=== PATIENT | female | born 1955 | race Caucasian/White ===

== ENCOUNTER 2018-11-13 05:54 | Inpatient (IN) | payer MEDICARE, OTHER ==
[2018-11-13] MEDS ORDERED: ROCURONIUM 50 MG INJ (06:53)
[2018-11-13] MEDS ORDERED: MIDAZOLAM 1 MG/ML 2 ML INJ (06:53)
[2018-11-13] MEDS ORDERED: CEFAZOLIN 1 GM INJ (06:53)
[2018-11-13] MEDS ORDERED: FENTAnyl 50 MCG/ML VIAL ×3 (06:53→09:49)
[2018-11-13] MEDS ORDERED: PROPOFOL 20 ML (06:53)
[2018-11-13] MEDS: CEFAZOLIN 2 GM/50 ML (PMX) 50 ML IVPB (06:55)
[2018-11-13] MEDS ORDERED: DIPHENHYDRAMINE 50 MG INJ IV (07:00)
[2018-11-13] MEDS ORDERED: LABETALOL HCL 20MG INJ IV (07:00)
[2018-11-13] MEDS ORDERED: METOCLOPRAMIDE 10 MG INJ IV (07:00)
[2018-11-13] MEDS ORDERED: FENTAnyl 50 MCG/ML VIAL IV ×3 (07:00)
[2018-11-13] MEDS ORDERED: PHENYLephrine (100 MCG/ML) 10ML SYG (07:00)
[2018-11-13] MEDS ORDERED: HYDROmorphONE 1 MG/5 ML IV SYRINGE IV (07:00)
[2018-11-13] MEDS ORDERED: EPHEDrine 25 MG/5 ML SYG IV (07:00)
[2018-11-13] MEDS ORDERED: hydrALAzine 20 MG INJ IV (07:00)
[2018-11-13] MEDS ORDERED: MEPERIDINE 25 MG INJ IV (07:00)
[2018-11-13] MEDS: LACTATED RINGER'S 1,000 ML IV ×2 (07:39)
[2018-11-13] MEDS ORDERED: LABETALOL HCL 20MG INJ (07:39)
[2018-11-13] MEDS ORDERED: ONDANSETRON 4 MG INJ (07:49)
[2018-11-13] MEDS ORDERED: DEXAMETHASONE 4 MG/ML 5 ML INJ (07:49)
[2018-11-13] MEDS ORDERED: METOCLOPRAMIDE 10 MG INJ (07:49)
[2018-11-13] MEDS: BUPIVACAINE 0.25% (MPF) 30 ML INJ (08:16)
[2018-11-13] MEDS: POLYMYXIN/BACITRACIN 1L IRRIG (08:20)
[2018-11-13] MEDS ORDERED: SUGAMMADEX SODIUM 200 MG/2 ML VIAL IV (09:00)
[2018-11-13] MEDS: THROMBIN 5000 UNIT VIAL (09:00)
[2018-11-13] MEDS: GELATIN SIZE 100 SPONGE (09:01)
[2018-11-13] MEDS: HYDROmorphONE 1 MG/5 ML IV SYRINGE IV ×2 (10:27→10:39)
[2018-11-13] MEDS: ONDANSETRON 4 MG INJ IV ×2 (10:27→20:45)
[2018-11-13] MEDS ORDERED: ZOLPIDEM 5 MG TAB PO (10:30)
[2018-11-13] MEDS ORDERED: TRIMETHOBENZAMIDE 100 MG/ML VIAL IM (10:30)
[2018-11-13] MEDS ORDERED: AL HYDROX/MG HYDROX/SIMETH 30 ML CUP PO (10:30)
[2018-11-13] MEDS ORDERED: DIAZEPAM 5 MG/ML SYG IM (10:30)
[2018-11-13] MEDS ORDERED: PROCHLORPERAZINE 10 MG TAB PO (10:30)
[2018-11-13] MEDS ORDERED: NACL 0.9% 3 ML SYG IV (10:30)
[2018-11-13] MEDS ORDERED: BETHANECHOL 25 MG TAB PO (10:30)
[2018-11-13] MEDS ORDERED: NALOXONE (0.4 MG/ML) INJ IV (10:30)
[2018-11-13] MEDS: HYDROmorphONE 0.2 MG/ML PCA IV ×2 (10:32→18:32)
[2018-11-13] MEDS: DEXTROSE 5%-0.45% NACL 1,000 ML IV ×3 (11:02→22:57)
[2018-11-13] MEDS: CEFAZOLIN 1 GM/50 ML (PMX) 50 ML IVPB ×3 (11:09→22:51)
[2018-11-13] MEDS: DIAZEPAM 5 MG TAB PO ×3 (12:13→22:04)
[2018-11-13] MEDS ORDERED: SUMATRIPTAN 50 MG TAB PO (20:00)
[2018-11-13] MEDS ORDERED: URSODIOL 250 MG TAB PO (21:00)
[2018-11-13] MEDS ORDERED: DESIPRAMINE 25 MG TAB PO (21:00)
[2018-11-13] MEDS: RANITIDINE 150 MG TAB PO (22:03)
[2018-11-13] MEDS: CEPASTAT LOZENGE MT (22:03)
[2018-11-13] MEDS: URSODIOL 250 MG TAB PO (22:04)
[2018-11-13] MEDS: SUMATRIPTAN 50 MG TAB PO (22:04)
[2018-11-13] MEDS: TRIMETHOPRIM/SULFAMETHOX (DS) TAB PO (22:04)
[2018-11-14] MEDS: METOCLOPRAMIDE 10 MG INJ IV (00:07)
[2018-11-14] MEDS: LORAZEPAM 1 MG TAB PO (04:25)
[2018-11-14] MEDS: DIPHENHYDRAMINE 50 MG CAP PO (04:25)
[2018-11-14] MEDS: HYDROmorphONE 0.2 MG/ML PCA IV (04:31)
[2018-11-14 05:13] LABS: HEMATOCRIT 33.8 % (37.0-47.0); HEMOGLOBIN 10.8 g/dl (12.0-16.0)
[2018-11-14 05:34] LABS: ANION GAP 3 (5-13); BLOOD UREA NITROGEN 5 mg/dl (7-20); CALCIUM 8.3 mg/dl (8.4-10.2); CARBON DIOXIDE 27 mmol/L (21-31); CHLORIDE 108 mmol/L (97-110); Estimated GFR > 60 mL/min (>60); GLUCOSE 128 mg/dl (70-220); POTASSIUM 3.3 mmol/L (3.5-5.1); SODIUM 138 mmol/L (135-144)
[2018-11-14] MEDS: CEFAZOLIN 1 GM/50 ML (PMX) 50 ML IVPB (05:48)
[2018-11-14] MEDS ORDERED: METOCLOPRAMIDE 10 MG INJ IV (06:00)
[2018-11-14] MEDS: RANITIDINE 150 MG TAB PO ×2 (09:49→20:22)
[2018-11-14] MEDS: DOCUSATE SODIUM 100 MG CAP PO ×2 (09:51→20:22)
[2018-11-14] MEDS: BETHANECHOL 25 MG TAB PO (09:52)
[2018-11-14] MEDS: BUPROPION (XL) 150 MG TAB PO (09:53)
[2018-11-14] MEDS: ARIPIPRAZOLE 5 MG TAB PO (09:53)
[2018-11-14] MEDS: ASCORBIC ACID 500 MG TAB PO ×2 (09:53→20:22)
[2018-11-14] MEDS: FERROUS SULFATE (EC) 325 MG TAB PO ×3 (09:53→20:23)
[2018-11-14] MEDS: TRIMETHOPRIM/SULFAMETHOX (DS) TAB PO ×2 (09:54→20:22)
[2018-11-14] MEDS: HYDROmorphONE 2 MG TAB PO ×2 (11:29→15:06)
[2018-11-14 12:33] LABS: ADD UMIC NO; UR ASCORBIC ACID NEGATIVE (NEGATIVE); UR BILIRUBIN (Dip) NEGATIVE (NEGATIVE); UR BLOOD (Dip) NEGATIVE (NEGATIVE); UR CLARITY CLEAR (CLEAR); UR COLOR STRAW (YELLOW); UR GLUCOSE (Dip) NEGATIVE (NEGATIVE); UR KETONES (Dip) NEGATIVE (NEGATIVE); UR LEUKOCYTE ESTERASE (Dip) NEGATIVE Leu/ul (NEGATIVE); UR NITRITE (Dip) NEGATIVE (NEGATIVE); UR SPECIFIC GRAVITY (Dip) 1.004 (1.003-1.030); UR TOTAL PROTEIN (Dip) NEGATIVE (NEGATIVE); UR UROBILINOGEN (Dip) NEGATIVE (NEGATIVE)
[2018-11-14] MEDS ORDERED: HYDROmorphONE 2 MG TAB PO (17:00)
[2018-11-14] MEDS: oxyCODONE 5 MG TAB PO (19:27)
[2018-11-14] MEDS: PREGABALIN 50 MG CAP PO (20:23)
[2018-11-14] MEDS: URSODIOL 250 MG TAB PO (21:23)
[2018-11-15] MEDS: oxyCODONE 5 MG TAB PO ×3 (06:27→15:24)
[2018-11-15] MEDS: BUPROPION (XL) 150 MG TAB PO (09:15)
[2018-11-15] MEDS: DOCUSATE SODIUM 100 MG CAP PO (09:15)
[2018-11-15] MEDS: FERROUS SULFATE (EC) 325 MG TAB PO ×2 (09:16→13:20)
[2018-11-15] MEDS: PREGABALIN 50 MG CAP PO ×2 (09:16→13:20)
[2018-11-15] MEDS: ASCORBIC ACID 500 MG TAB PO (09:17)
[2018-11-15] MEDS: TRIMETHOPRIM/SULFAMETHOX (DS) TAB PO (09:17)
[2018-11-15] MEDS: ARIPIPRAZOLE 5 MG TAB PO (09:18)
[2018-11-15] MEDS: RANITIDINE 150 MG TAB PO (09:18)
[2018-11-15] MEDS: METHYLNALTREXONE 12 MG/0.6 ML VIAL SC (11:00)
== END 2018-11-15 18:59 | disposition home or self-care (01) | DRG 519 ==
LOC: REC 05:54 → MS1 11:40
PROC: 01NB0ZZ Release Lumbar Nerve, Open Approach (ICD-10-PCS; principal; 2018-11-13 07:00)
PROC: 0SB20ZZ Excision of Lumbar Vertebral Disc, Open Approach (ICD-10-PCS; 2018-11-13 07:00)
DX: M51.16 Intervertebral disc disorders with radiculopathy, lumbar region (principal); N39.0 Urinary tract infection, site not specified; M51.17 Intervertebral disc disorders with radiculopathy, lumbosacral region; B96.20 Unspecified Escherichia coli [E. coli] as the cause of diseases classified elsewhere; K74.3 Primary biliary cirrhosis; F33.42 Major depressive disorder, recurrent, in full remission; K59.03 Drug induced constipation; T40.2X5A Adverse effect of other opioids, initial encounter; Y92.230 Patient room in hospital as the place of occurrence of the external cause
CPT/HCPCS: 72020; 80048; 81003; 85014; 85018; 86850; 86900; 86901; 86920; 87086; 88304; 97116; 97161; 97530